=== PATIENT | male | born 1935 | race Caucasian/White ===

== ENCOUNTER 2020-04-18 12:43 | Inpatient (IN) ==
[2020-04-18] MEDS ORDERED: Albuterol 2.5 MG/3 ML NEBULIZER IH PRN (19:49)
[2020-04-18] MEDS ORDERED: Acetaminophen 325 MG TABLET PO PRN (19:49)
[2020-04-18] MEDS: Budesonide/Formoterol 80/4.5 1 PUFF INH IH SCH (21:17)
[2020-04-18] MEDS ORDERED: Vancomycin 1 EACH in 0.9 % Sodium Chloride 250 ML IVPB PRN (22:00)
[2020-04-18] MEDS ORDERED: *HR* Dextrose 50 % in Water (Vial) 50 ML VIAL IVP PRN (22:44)
[2020-04-18] MEDS ORDERED: D5% in Water 1,000 ML IVC PRN (22:44)
[2020-04-18] MEDS ORDERED: Dextrose Gel 15 GM/37.5 ML TUBE PO PRN ×2 (22:44)
[2020-04-18] MEDS: Insulin DETEMIR 100 UNIT/ML per UNIT SQ SCH (23:01)
[2020-04-18] MEDS: Sacubitril/Valsartan 24/26 MG 1 TABLET PO SCH (23:02)
[2020-04-19] MEDS: Insulin LISPRO 300 UNITS/3 ML VIAL SQ SCH ×6 (00:07→20:32)
[2020-04-19] MEDS: Cefepime HCl 2,000 MG in 0.9 % Sodium Chloride Mini Bag 100 ML IVPB SCH ×3 (02:08→17:19)
[2020-04-19 08:01] LABS: Basophils % 0.2 %; Eosinophils % 0.1 %; Hemoglobin 13.1 g/dL (12.9-16.9); Immature Granulocytes % 1.1 % (0-4); Lymphocytes # 0.9 K/mcL (0.6-4.6); Lymphocytes % 5.5 %; Mean Corpuscular HGB Conc 32.8 g/dL (31.6-35.5); Mean Corpuscular Hemoglobin 29.6 pg (28.0-33.3); Mean Corpuscular Volume 90.5 fL (83.0-100.0); Mean Platelet Volume 11.9 fL (9.4-12.4); Monocytes # 2.4 K/mcL (0.0-1.3); Monocytes % 14.9 %; Neutrophils # 12.8 K/mcL (1.6-8.9); Platelet Count 277 K/mcL (140-400); Red Blood Count 4.42 M/mcL (4.19-5.50); Segmented Neutrophils % 78.2 %; White Blood Count 16.4 K/mcL (4.3-11.1)
[2020-04-19] MEDS: Budesonide/Formoterol 80/4.5 1 PUFF INH IH SCH ×2 (08:08→21:58)
[2020-04-19 08:22] LABS: BUN/Creatinine Ratio 49 (6-26); Blood Urea Nitrogen 66 mg/dL (8-23); Calcium 8.4 mg/dL (8.6-10.3); Carbon Dioxide 20 mEq/L (23-29); Chloride 108 mEq/L (98-107); Glucose 227 mg/dL (70-105); Osmolality,Calculated 306 (280-300); Potassium 3.7 mEq/L (3.5-5.1); Sodium 135 mEq/L (136-145); eGFR For African Americans > 60 (> 60); eGFR For Non-African Americans 51 (> 60)
[2020-04-19] MEDS: Bumetanide 1 MG TABLET PO SCH (08:45)
[2020-04-19] MEDS: Magnesium Oxide 400 MG TABLET PO SCH (08:45)
[2020-04-19] MEDS: carvediloL 6.25 MG TABLET PO SCH ×2 (08:45→17:20)
[2020-04-19] MEDS: Aspirin Enteric Coated 81 MG Tablet PO SCH (08:45)
[2020-04-19] MEDS: Sacubitril/Valsartan 24/26 MG 1 TABLET PO SCH ×2 (08:53→20:31)
[2020-04-19] MEDS: (Liraglutide [Victoza 2-Pak] 1.8 MG) SQ SCH (09:25)
[2020-04-19] MEDS: (Empagliflozin [Jardiance] 25 MG) PO SCH (09:25)
[2020-04-19] MEDS: (Linagliptin [Tradjenta] 5 MG) PO SCH (09:25)
[2020-04-19] MEDS: Furosemide 40 MG TABLET PO SCH (16:44)
[2020-04-19] MEDS: Insulin DETEMIR 100 UNIT/ML per UNIT SQ SCH (20:33)
[2020-04-20] MEDS: Cefepime HCl 2,000 MG in 0.9 % Sodium Chloride Mini Bag 100 ML IVPB SCH ×2 (00:55→08:42)
[2020-04-20 07:25] LABS: Hematocrit 38.7 % (37.5-50.1); Hemoglobin 12.8 g/dL (12.9-16.9); Mean Corpuscular HGB Conc 33.1 g/dL (31.6-35.5); Mean Corpuscular Hemoglobin 29.8 pg (28.0-33.3); Mean Corpuscular Volume 90.2 fL (83.0-100.0); Mean Platelet Volume 11.9 fL (9.4-12.4); Platelet Count 247 K/mcL (140-400); Red Blood Count 4.29 M/mcL (4.19-5.50); Red Cell Distribution Width 14.3 % (11.5-14.5); White Blood Count 18.8 K/mcL (4.3-11.1)
[2020-04-20 07:44] LABS: BUN/Creatinine Ratio 54 (6-26); Blood Urea Nitrogen 72 mg/dL (8-23); Calcium 8.2 mg/dL (8.6-10.3); Carbon Dioxide 22 mEq/L (23-29); Chloride 110 mEq/L (98-107); Glucose 82 mg/dL (70-105); Osmolality,Calculated 304 (280-300); Potassium 4.2 mEq/L (3.5-5.1); Sodium 137 mEq/L (136-145); eGFR For African Americans > 60 (> 60); eGFR For Non-African Americans 51 (> 60)
[2020-04-20] MEDS: Budesonide/Formoterol 80/4.5 1 PUFF INH IH SCH (08:03)
[2020-04-20] MEDS: Aspirin Enteric Coated 81 MG Tablet PO SCH (08:41)
[2020-04-20] MEDS: Furosemide 40 MG TABLET PO SCH (08:41)
[2020-04-20] MEDS: Sacubitril/Valsartan 24/26 MG 1 TABLET PO SCH (08:42)
[2020-04-20] MEDS: Magnesium Oxide 400 MG TABLET PO SCH (08:42)
[2020-04-20] MEDS: carvediloL 6.25 MG TABLET PO SCH (08:42)
[2020-04-20] MEDS: Bumetanide 1 MG TABLET PO SCH (08:42)
[2020-04-20] MEDS: Insulin LISPRO 300 UNITS/3 ML VIAL SQ SCH (08:59)
[2020-04-20] MEDS: (Empagliflozin [Jardiance] 25 MG) PO SCH (09:00)
[2020-04-20] MEDS: (Liraglutide [Victoza 2-Pak] 1.8 MG) SQ SCH (09:00)
[2020-04-20] MEDS ORDERED: Insulin DETEMIR 100 UNIT/ML per UNIT SQ SCH (09:00)
[2020-04-20] MEDS: (Linagliptin [Tradjenta] 5 MG) PO SCH (09:00)
[2020-04-20 09:38] LABS: Estimated Average Glucose 209 mg/dl
[2020-04-20 12:21] VITALS: BP 95/59
[2020-04-20] MEDS ORDERED: Furosemide 40 MG/4 ML VIAL IVP ONE (12:30)
[2020-04-20 13:10] LABS: ABG Base Excess -9 mEq/L (-2 to 3); ABG HCO3 18 mEq/L (21-27); ABG Oxygen Saturation 83 % (95-98); ABG PCO2 40 mmHg (35-45); ABG PH 7.26 pH Units (7.32-7.45); ABG PO2 54 mmHg (85-104); ABG TCO2 19 mEq/L (20-26); Blood Gas Pressure Support 16 cm H2O
[2020-04-20] MEDS ORDERED: *HR* Etomidate 20 MG/10 ML AMPUL IVP ONE (14:08)
[2020-04-20] MEDS ORDERED: *HR* Succinylcholine 200 MG/10 ML VIAL IVP ONE (14:08)
[2020-04-20] MEDS ORDERED: Midazolam HCl 50 MG/100 ML IV.SOLN IVC SCH (14:15)
[2020-04-20] MEDS ORDERED: EPINEPHrine 1 MG/ML VIAL ONE (15:30)
[2020-04-20] MEDS ORDERED: *HR* EPINEPHrine 1 MG/10 ML SYRINGE ONE (15:30)
[2020-04-21 00:41] LABS: Adenovirus F 40/41 PCR Not detected (Not detect); Astrovirus PCR Not detected (Not detect); C.difficile Toxin A/B Gene PCR Not detected (Not detect); Campylobacter by PCR Not detected (Not detect); Cryptosporidium by PCR Not detected (Not detect); Cyclospora cayetanensis PCR Not detected (Not detect); E. coli O157 by PCR Not detected (Not detect); Entamoeba histolytica PCR Not detected (Not detect); Enteroaggregative E.coli(EAEC) Not detected (Not detect); Enteropathogenic E.coli(EPEC) DETECTED (Not detect); Enterotoxigenic E.coli (ETEC) Not detected (Not detect); Giardia lamblia PCR Not detected (Not detect); Norovirus GI/GII PCR Not detected (Not detect); Plesiomonas shigelloides PCR Not detected (Not detect); Rotavirus A PCR Not detected (Not detect); Salmonella PCR Not detected (Not detect); Sapovirus PCR Not detected (Not detect); Shig/EnteroinvasiveE coli EIEC Not detected (Not detect); Shigalike tox-prod E coli STEC Not detected (Not detect); Vibrio PCR Not detected (Not detect); Vibrio cholerae PCR Not detected (Not detect); Yersinia enterocolitica PCR Not detected (Not detect)
== END 2020-04-20 15:46 | disposition expired | DRG 177 ==
LOC: INPPIK 15:45
PROVIDERS: ADMIT Family Medicine; ATTEND Family Medicine